=== PATIENT | female | born 1975 | race Caucasian/White ===

== ENCOUNTER 2017-10-14 10:37 | Outpatient (CLI) | payer OTHER ==
[2017-10-14 11:13] LABS: BASOPHILS % 0.6 (0.0-1.5); EOSINOPHILS % 2.3 % (0.0-6.8); MEAN CORPUSCULAR HEMOGLOBIN 30.4 pg (28.0-34.0); MEAN CORPUSCULAR VOLUME 90.6 fl (80.0-100.0); MONOCYTES % 5.3 % (0.0-11.0); NEUTROPHILS # 3.5 # k/uL (1.4-7.7)
[2017-10-14 11:42] LABS: eGFR (Non-African) > 60
== END 2017-10-14 10:40 ==
LOC: LAB 10:37
PROVIDERS: ATTEND Physician Assistant
DX: R35.0 Frequency of micturition (principal); R53.83 Other fatigue; E16.2 Hypoglycemia, unspecified
CPT/HCPCS: 36415; 80053; 83036; 84443; 85025

== ENCOUNTER 2017-10-20 08:04 | Outpatient (CLI) | payer OTHER | END 2017-10-20 08:06 | LOC: LAB 08:04 | PROVIDERS: ATTEND Physician Assistant | DX: Z13.6 Encounter for screening for cardiovascular disorders (principal); R53.83 Other fatigue; M25.50 Pain in unspecified joint | CPT/HCPCS: 36415; 80061; 82607; 82652; 86618; 86666; 86757 ==